=== PATIENT | female | born 1930 | race Caucasian/White ===

== ENCOUNTER 2018-03-23 19:31 | Inpatient (IN) | payer SELFPAY ==
[~2018-03-23] VITALS: Ht 154.9 cm; Wt 35.9 kg
[2018-03-23] MEDS ORDERED: SODIUM CHLORIDE 0.9% 1,000 ML IV ONE (22:30)
[2018-03-23] MEDS ORDERED: ONDANSETRON HCL 4 MG/2 ML VIAL IV ONE (22:30)
[2018-03-23] MEDS ORDERED: MORPHINE SULFATE 10 MG/ML INJ 1ML SDV IV ONE (22:30)
[2018-03-23 23:01] LABS: Basophils # (auto) 0 uL; Basophils % (auto) 0.3 % (0.0-2.0); Eosinophils # (auto) 0 uL; Hematocrit 37.1 % (36.0-46.0); Hemoglobin 12.5 g/dL (12.2-16.2); Lymphocytes # (auto) 0.4 uL; Lymphocytes % (auto) 5.9 % (10.0-50.0); Mean Corpuscular Hgb Conc. 33.7 g/dL (32.0-36.0); Mean Corpuscular Volume 85.9 fL (80.0-100.0); Monocytes # (auto) 0.6 uL; Monocytes % (auto) 7.9 % (0.0-12.0); Neutrophils # (auto) 6.4 uL; Neutrophils % (auto) 85.9 % (37.0-80.0); Platelet Count (auto) 190 10^3/uL (140-450); Red Blood Cells 4.32 10^6/uL (4.0-5.20); Red Cell Distribution Width 14.8 % (11.8-14.3); White Blood Cell 7.5 10^3/uL (4.4-10.8)
[2018-03-23 23:20] LABS: Albumin 3.6 g/dL (3.4-5.0); BUN/Creatinine Ratio 24.1; Calcium 8.5 mg/dL (8.5-10.1)
[2018-03-23 23:22] LABS: INR 0.9 (0.9-1.15); Prothrombin Time 9.7 sec (9.27-12.13)
[2018-03-23 23:23] LABS: Bilirubin, Total 0.7 mg/dL (0.2-1.0); Total Protein 6.6 g/dL (6.4-8.2)
[2018-03-24] VITALS (7 sets, daily range): BP systolic 118–150; BP diastolic 59–74
[2018-03-24] MEDS ORDERED: ACETAMINOPHEN 500 MG TAB PO PRN (01:15)
[2018-03-24] MEDS ORDERED: MORPHINE SULFATE 10 MG/ML INJ 1ML SDV IV PRN (01:15)
[2018-03-24 02:25] LABS: Urine Bacteria FEW /hpf (None Seen); Urine Blood Negative /uL (Negative); Urine Mucus FEW (None Seen); Urine Specific Gravity 1.021 (1.001-1.035); Urine WBC 1 /hpf (0 - 5)
--- NOTE | 2018-03-24 02:40 | NUR ---
MS admit from ER Patient admitted to tele/MS and oriented to primary RN, unit, room, bed, and unit policies regarding patient care and visiting hours. Bed is in lowest position and locked. Call light within reach. Board updated. Bowens hung below bladder and catheter bag attached to non-moveable part of bedframe. Patient weighed by bedscale and encouraged to call if they need something. All questions and concerns addressed.
[2018-03-24] MEDS: ONDANSETRON HCL 4 MG/2 ML VIAL IV PRN ×2 (03:13→16:27)
[2018-03-24] MEDS: MORPHINE SULF INJ 2 MG/ML SYRINGE 1ML IV PRN ×2 (03:14→16:26)
--- NOTE | 2018-03-24 08:00 | NUR ---
RECEIVED PATIENT ALERT AND ORIENTED X2, NOT IN DISTRESS, CLEAR LUNG SOUNDS IN BILATERAL UPPER AND LOWER LUNG LOBES, RR=18 SAT=95% DENIED SOB, HEART UAE=227 DENIED CHEST PAIN, ABDOMEN SOFT WITH ACTIVE BS, KEEP NPO REPORTED, LAST BM=UNKNOWN, MADDOX CATH IN PLACE PATENT AND DRAINING CLEAR YELLOW URIN, C/0 LT. HIP PAIN L=7/10, SKIN INTACT WARM TO TOUCH, RADIAL AND PEDAL PULSES PALPABLE, RESTING ON BED, LAYING ON RT. SIDE, HEAD OF BED ELEVATED, BED ON LOWER POSITION, RAILS UP X2, CALL LIGHT ON REACH, PENDING SURGICAL CONSULT, PENDING SS AND WOUND CONSULT, WILL CONTINUE MONITORING.
[2018-03-24 08:18] LABS: Basophils # (auto) 0 uL; Basophils % (auto) 0.2 % (0.0-2.0); Eosinophils # (auto) 0 uL; Eosinophils % (auto) 0.2 % (0.0-7.0); Hematocrit 36.3 % (36.0-46.0); Hemoglobin 12.5 g/dL (12.2-16.2); Lymphocytes # (auto) 0.7 uL; Lymphocytes % (auto) 9.6 % (10.0-50.0); Mean Corpuscular Hemoglobin 29.5 pg (28.0-32.0); Mean Corpuscular Hgb Conc. 34.4 g/dL (32.0-36.0); Mean Corpuscular Volume 85.7 fL (80.0-100.0); Monocytes # (auto) 0.7 uL; Monocytes % (auto) 10.2 % (0.0-12.0); Neutrophils # (auto) 5.7 uL; Neutrophils % (auto) 79.8 % (37.0-80.0); Nucleated Red Blood Cells % 0.1 %; Platelet Count (auto) 175 10^3/uL (140-450); Red Blood Cells 4.24 10^6/uL (4.0-5.20); Red Cell Distribution Width 15.5 % (11.8-14.3); White Blood Cell 7.1 10^3/uL (4.4-10.8)
[2018-03-24 08:25] LABS: BUN/Creatinine Ratio 14.8; Calcium 8.2 mg/dL (8.5-10.1); Potassium 3.9 mmol/L (3.5-5.1)
[2018-03-24] MEDS: HYDROcodone-ACET 5/325MG TAB PO PRN (10:04)
[2018-03-24] MEDS: SODIUM CHLORIDE 0.9% 1,000 ML IV SCH (15:00)
--- NOTE | 2018-03-24 16:15 | NUR ---
WOUND CARE NOTE: Wound care in to see patient per wound care request regarding low Denilson score of 13 and patient has L femoral fracture , putting patient to high risk for skin breakdown. Patient is 87 years old male with admitting diagnosis of L Femoral fracture. Patient is resting in bed in Rm. 220A. Patient is awake, alert and able to verbalize needs. She needs assistance in turning and repositioning. Patient is in no stated pain at this time but her movement is guarded as she states it hurts to move. Skin assessment done with the assistance of nurse's aid, Laura. No wound noted, no non-blanchable redness over bony prominences noted. Repositioned patient for comfort facing her Rt side, redistributed pressure points with pillows. Patient tolerated well. Bed in lowest position,nurse at bedside. RECOMMENDATION: BID/PRN cleaning and application of barrier cream to sacral and perineum as preventative per MD order, dietary consult for low Denilson score, frequent turning and repositioning schedule as condition permits, redistribute pressure points with pillows,continue monitoring by wound care while patient is hospitalized. Addendum: 03/24/18 at 1820 by Bisi Mcrae RN Amended: Links added.
--- NOTE | 2018-03-24 16:58 | NUR ---
NOT IN DISTRESS, KEEP LT.HIP IMMOBILIZED, INSERTED NEW IV SITE ON LT LOWER ARM DIMAS 20, TOLERATED WELL, RESTING ON AIR MATTRESS BED BED, WOUND CARE NURSE RECOMMENDED REGULAR BED, CARPENTRY TEACHER AND SCHOOL ADMISSIONS REPRESENTATIVE WERE NOTIFIED, ORDER PENDING REPORTED, WILL CONTINUE MONITORING.
--- NOTE | 2018-03-24 19:32 | NUR ---
Opening Shift Note SBAR report received from Padmini BRITT. Assumed care of patient, awake and alert 1-2x, confused. No S/Sx of distress/SOB or pain. s/p FALL WITH LT FEMORAL HIP FX. Instructed on POC, and instructed pt to call for assist PRN, will continue to monitor for changes Q1hr and PRN.
--- NOTE | 2018-03-24 19:43 | NUR ---
CHANGED TO REGULAR BED ORDERED, NOT IN DISTRESS, RESTING ON BED,REPORT WAS GIVEN TO THE AUTOMATIC SERGING MACHINE OPERATOR RN.
--- NOTE | 2018-03-24 21:48 | NUR ---
MD ROTHMAN AT BEDSIDE .NO NEW ORDERS RECEIVED.
--- NOTE | 2018-03-25 02:00 | NUR ---
IV removal by PT IV removed by pt during confusion episode, catheter inspected and fully intact. Pressure dressing applied to site. Pt states no discomfort to site, agrees to new IV placement.
--- NOTE | 2018-03-25 03:00 | NUR ---
IV insertion IV access obtained, via clean sterile technique by inserting gauge catheter at 22.G after 1 attempt. IV secured properly. No trauma to site. Patient tolerated well.
[2018-03-25 06:03] VITALS: BP 146/77
--- NOTE | 2018-03-25 06:46 | NUR ---
Closing Shift Note SBAR report to be received by Padmini BRITT. Patient,sleeping, A&O 1-2x, confused at baseline. No S/Sx of distress/SOB or pain. s/p FALL WITH LT FEMORAL HIP FX. Pt instructed to call for assist PRN, please continue to monitor for changes Q1hr and PRN. MD Nixon was last night at pt room, he stated preliminary date for any procedure for Thursday, no orders received, no acute events overnight.
[2018-03-25] MEDS: SODIUM CHLORIDE 0.9% 1,000 ML IV SCH ×2 (07:40→12:00)
--- NOTE | 2018-03-25 08:00 | NUR ---
RECEIVED PATIENT ALERT AND ORIENTED X2, NOT IN DISTRESS, CLEAR LUNG SOUNDS IN BILATERAL UPPER AND LOWER LUNG LOBES, RR=18 SAT=96% DENIED SOB, HEART RAT=96 DENIED CHEST PAIN, ABDOMEN SOFT WITH ACTIVE BS, TOLERATING DIET TRAY WELL WITH MINIMAL ASSISTANCE, LAST BM=UNKNOWN, MADDOX CATH IN PLACE PATENT AND DRAINING CLEAR YELLOW URIN, C/0 LT. HIP PAIN L=4/10 AT THIS MOMENT, LT. HIP KEEP IMMOBILIZED, SKIN INTACT WARM TO TOUCH, RADIAL AND PEDAL PULSES PALPABLE, RESTING ON BED, LAYING ON RT. SIDE, HEAD OF BED ELEVATED, BED ON LOWER POSITION, RAILS UP X2, CALL LIGHT ON REACH, PENDING ORTHOPEDIC CONSULT, PENDING SS AND WOUND CONSULT, WILL CONTINUE MONITORING.
[2018-03-25 09:00] VITALS: BP 153/78
[2018-03-25] MEDS: FAMOTIDINE 20 MG TAB PO SCH (10:06)
[2018-03-25] MEDS: HYDROcodone-ACET 5/325MG TAB PO PRN (10:07)
--- NOTE | 2018-03-25 11:37 | NUR ---
NUTRITION CONSULT/ASSESSMENT NOTES Please refer to link notes of nutrition screen form filed under the intervention section of the plan of care for further details. Est. Needs: 1350 kcal to 1550 kcal (30-35 kcal/kgBW), 45 gms to 53 gms pro (1.0-1.2 gms/kgBW). Will continue to monitor pertinent labs and reassess nutrient need prn Thank you for this consult. Addendum: 03/25/18 at [address] Amended: Links added.
[2018-03-25 13:00] VITALS: BP 125/66
[2018-03-25 16:28] VITALS: BP 120/58
--- NOTE | 2018-03-25 19:30 | NUR ---
PENDING NPO POST MN ORDERED, PENDING CONSENT FORM DAUGHTER EVANGELISTA WAS NOTIFIED, NOT IN DISTRESS, RESTING ON BED, REPORT WAS GIVEN TO THE CRIMINAL INVESTIGATOR RN.
--- NOTE | 2018-03-25 20:05 | NUR ---
open note assumed care of pt. upon entering room, pt daughter at bedside. pt awake and alert. denied any pain and did not appear in any distress. updated pt and family member on plan of care. encouraged to use call light as needed. will round on pt q1hr along with pressure redistribution q2 and as needed.
[2018-03-25 22:00] VITALS: BP 131/67
[2018-03-25] MEDS: Ensure Enlive Strawberry 8oz Bottle PO SCH (22:00)
--- NOTE | 2018-03-26 03:50 | NUR ---
pt removed IV catheter. upon asking pt, pt confused. alert to self and where she is. unable to verbalize reason for visit or if she had purposely removed IV. in catheter intact. iv site shows no sign of trauma. will attempt IV at later time.
[2018-03-26 05:00] VITALS: BP 143/72
[2018-03-26] MEDS: Ensure Enlive Strawberry 8oz Bottle PO SCH ×2 (06:00→18:36)
--- NOTE | 2018-03-26 07:35 | NUR ---
OPENING SHIFT PATIENT IS AWAKE, ALERT, AND ORIENTED X2. RESPIRATIONS EVEN AND UNLABORED. NO S/S OF DISTRESS, SOB, OR PAIN. DISCUSSED POC WITH PATIENT, PATIENT VERBALIZED UNDERSTANDING. PATIENT IS NPO AWAITING PROCEDURE THIS A.M. WILL CONTINUE TO MONITOR Q1 HOUR AND PRN.
[2018-03-26 09:30] VITALS: BP 122/66
[2018-03-26] MEDS: FAMOTIDINE 20 MG TAB PO SCH (10:00)
--- NOTE | 2018-03-26 10:00 | NUR ---
DR. SHAIKH Burgess AT BEDSIDE. DISCUSSED POC WITH PATIENT. PATIENT VERBALIZED UNDERSTANDING.
[2018-03-26] MEDS: SODIUM CHLORIDE 0.9% 1,000 ML IV SCH (10:04)
--- NOTE | 2018-03-26 10:08 | NUR ---
CONSENTS CONSENTS FOR LEFT HIP NICOLE ARTHROPLASTY SIGNED BY DAUGHTER EVANGELISTA WITH WALE Bolanos CONSENTS MISSING ONE SIGNATURE. PATIENT ALERT AND ORIENTED X3. PATIENT AWARE OF PROCEDURE. PATIENT ABLE TO SIGN FINAL FORM. FINAL FORM SIGNED AND WITNESSED BY THIS RMeeraN. Addendum: 03/26/18 at 1056 by Lisa Tapia RN CONSENT NOT VALID. PATIENT NEEDS TO BE ALERT AND ORIENTED X4. PATIENT DOES NOT KNOW DATE OR TIME. PATIENT IS ONLY ALERT TO SELF, PLACE, AND SITUATION. DAUGHTER CONTACTED. DAUGHTER NOT ABLE TO BE REACHED. LEFT A MESSAGE FOR DAUGHTER TO CALL BACK.
[2018-03-26] MEDS ORDERED: LIDOCAINE 1% INJ PF 5ML AMP ONE (10:18)
[2018-03-26] MEDS ORDERED: ETOMIDATE (2MG/ML) 20ML VIAL IV ONE (10:18)
[2018-03-26] MEDS ORDERED: ROPIVACAINE 0.5% (5MG/ML) 20ML AMPULE IJ ONE (10:29)
[2018-03-26] MEDS ORDERED: LIDOCAINE W/ EPINEPHRINE 2% INJ 20ML VIAL ONE (10:29)
--- NOTE | 2018-03-26 10:58 | NUR ---
PROCEDURE CURRENTLY HELD CONSENT NOT VALID. PATIENT NEEDS TO BE ALERT AND ORIENTED X4. PATIENT DOES NOT KNOW DATE OR TIME. PATIENT IS ONLY ALERT TO SELF, PLACE, AND SITUATION. DAUGHTER CONTACTED. DAUGHTER NOT ABLE TO BE REACHED. LEFT A MESSAGE FOR DAUGHTER TO CALL BACK.
--- NOTE | 2018-03-26 11:30 | NUR ---
DAUGHTER EVANGELISTA CONTACTED DAUGHTER CONTACTED AT [phone] DAUGHTER CONFIRMS AUTHORIZATION FOR SURGERY. INSTRUCTED DAUGHTER THAT A SECOND NURSE WILL BE CONTACTING HER FOR A SECOND WITNESS. DAUGHTER VERBALIZED UNDERSTANDING. PRE OP R.N ALERTED OF CONTACT MADE WITH DAUGHTER.
[2018-03-26] MEDS ORDERED: ceFAZolin 1GM/50ML 50 ML IV ONE (11:37)
[2018-03-26] MEDS ORDERED: ROCURONIUM 10MG/ML 10ML VIAL IV ONE (11:55)
[2018-03-26] MEDS ORDERED: fentaNYL CITRATE 100 MCG/2 ML VL ONE (12:09)
[2018-03-26] MEDS ORDERED: NALOXONE HCL 0.4 MG/ML VIAL IV PRN (12:15)
[2018-03-26] MEDS ORDERED: HYDROmorphone HCL 2 MG/ML VL IV PRN ×2 (12:15→16:45)
[2018-03-26] MEDS ORDERED: ONDANSETRON HCL 4 MG/2 ML VIAL IV ONE (12:15)
[2018-03-26] MEDS ORDERED: ESMOLOL HCL 10 ML IV ONE (12:35)
--- NOTE | 2018-03-26 14:30 | NUR ---
PATIENT BACK FROM PROCEDURE PATIENT HAS A DRESSING TO THE LEFT HIP. DRESSING IS CLEAN, DRY, AND INTACT. PATIENT IS AWAKE, WITH NO S/S OF DISTRESS, SOB, OR PAIN. WILL CONTINUE TO MONITOR Q1 HOUR AND PRN.
--- NOTE | 2018-03-26 15:46 | NUR ---
EDUARDO CLARK M.D. TO ASK TO RESUME PATIENT'S PREVIOUS DIET NOW THAT PATIENT IS BACK FROM PROCEDURE. WILL AWAIT MGustavo'S CALL BACK
[2018-03-26] MEDS ORDERED: HYDROcodone-ACET 5/325MG TAB PO PRN (16:45)
[2018-03-26] MEDS ORDERED: DOCUSATE SOD 100 MG CAP PO PRN (16:45)
[2018-03-26 17:02] VITALS: BP 145/68
--- NOTE | 2018-03-26 17:30 | NUR ---
PATIENT ASLEEP IN BED NO S/S OF DISTRESS, SOB, OR PAIN. RESPIRATIONS ARE EVEN AND UNLABORED. BED IN LOWEST POSITION, SIDE RAILS UP X2, AND CALL LIGHT WITHIN REACH.
[2018-03-26] MEDS: ceFAZolin 1GM/50ML 50 ML IV SCH ×2 (18:35→23:59)
--- NOTE | 2018-03-26 18:45 | NUR ---
DAUGHTER EVANGELISTA CALLED WANTED AN UPDATE ON PATIENT. ADDRESSED ALL QUESTIONS AND CONCERNS. DAUGHTER REQUESTS THAT IF HER MOM WAKES UP AND ASKS FOR HER, TO PLEASE INFORM HER THAT SHE WILL BE HERE TOMORROW MORNING.
--- NOTE | 2018-03-26 18:50 | NUR ---
END OF SHIFT PATIENT ASLEEP IN BED. NO S/S OF DISTRESS, SOB, OR PAIN. RESPIRATIONS EVEN AND UNLABORED. DRESSING TO LEFT HIP IS CLEAN, DRY, AND INTACT. BED IS IN LOWEST POSITION, SIDE RAILS UP X2, AND CALL LIGHT WITHIN REACH. FALL PRECAUTIONS IN PLACE. WILL ENDORSE CARE TO SUPERVISOR TANK HOUSE R.N.
--- NOTE | 2018-03-26 20:00 | NUR ---
open note assumed care of pt. upon entering room, pt eyes are closed, breathing is even an unlabored. no s/s distress noted. bed locked, in low position with x2 rails up. call light in reach. will continue to monitor and provide pressure redistribution q1hr.
[2018-03-26 22:00] VITALS: BP 123/72
--- NOTE | 2018-03-26 22:15 | NUR ---
cooling measures initiated. Addendum: 03/27/18 at 0235 by TULIO SAHU RN RN excess blankets removed. temperature of room decreased. pt mentation remains at baseline, alert to self and to her location. not combative. pt not diaphoretic. will continue to monitor.
--- NOTE | 2018-03-27 02:08 | NUR ---
pt self removed IV line despite stockinette and mitten on opposite hand. no trauma to site visualized. coagulation within expected time frame. pt unaware as to her discontinuing IV and denied any discomfort. will attempt IV insertion at later time.
--- NOTE | 2018-03-27 04:53 | NUR ---
pt found to have removed mittens and lifted corner of dressing on left hip. no trauma to site visualized. gwen intact. dressing change performed. pt tolerated well. mittens replaced. IV insertion IV access obtained, via clean sterile technique by inserting 20 gauge catheter at [facility] after 2 attempt(s). IV secured properly. No trauma to site. Patient tolerated well.
[2018-03-27 05:00] VITALS: BP 122/62
[2018-03-27] MEDS: ceFAZolin 1GM/50ML 50 ML IV SCH ×3 (05:34→17:50)
[2018-03-27] MEDS: SODIUM CHLORIDE 0.9% 1,000 ML IV SCH (05:34)
[2018-03-27 06:34] LABS: Basophils # (auto) 0 uL; Basophils % (auto) 0.2 % (0.0-2.0); Eosinophils # (auto) 0 uL; Eosinophils % (auto) 0.1 % (0.0-7.0); Hematocrit 34.7 % (36.0-46.0); Hemoglobin 12.1 g/dL (12.2-16.2); Lymphocytes # (auto) 0.5 uL; Lymphocytes % (auto) 4.4 % (10.0-50.0); Mean Corpuscular Volume 85.8 fL (80.0-100.0); Monocytes # (auto) 1.4 uL; Monocytes % (auto) 13.6 % (0.0-12.0); Neutrophils # (auto) 8.6 uL; Neutrophils % (auto) 81.7 % (37.0-80.0); Nucleated Red Blood Cells % 0.1 %; Platelet Count (auto) 203 10^3/uL (140-450); Red Blood Cells 4.04 10^6/uL (4.0-5.20); Red Cell Distribution Width 15.1 % (11.8-14.3); White Blood Cell 10.5 10^3/uL (4.4-10.8)
[2018-03-27 06:56] LABS: BUN/Creatinine Ratio 21.5; Potassium 3.8 mmol/L (3.5-5.1)
--- NOTE | 2018-03-27 07:26 | NUR ---
OPENING SHIFT PATIENT IS ASLEEP IN BED. PATIENT IS WEARING HAND MITTENS BILATERALLY TO PREVENT INJURY TO HERSELF. RESPIRATIONS EVEN AND UNLABORED. NO S/S OF DISTRESS, SOB, OR PAIN. FALL PRECAUTIONS IN PLACE. WILL CONTINUE TO MONITOR Q1 HOUR AND PRN.
[2018-03-27 08:44] VITALS: BP 113/52
--- NOTE | 2018-03-27 10:20 | NUR ---
DARK BOWEL MOVEMENT PATIENT HAD A BOWEL MOVEMENT THAT WAS VERY DARK IN COLOR WITH FOUL ODOR. PAGED DR. LANGLEY COLLECTED SPECIMEN AND SENT TO LAB FOR STOOL OCCULT TEST STAT CBC ORDERED STAT WELL WILL AWAIT RESULTS AND UPDATE MYariel
[2018-03-27] MEDS: Ensure Enlive Strawberry 8oz Bottle PO SCH ×3 (12:05→17:51)
[2018-03-27] MEDS: FAMOTIDINE 20 MG TAB PO SCH (12:05)
[2018-03-27] MEDS: ENOXAPARIN SOD 30 MG/0.3 ML SYRINGE SC SCH (12:06)
[2018-03-27 12:17] LABS: Basophils # (auto) 0 uL; Basophils % (auto) 0.1 % (0.0-2.0); Eosinophils # (auto) 0 uL; Hemoglobin 11.3 g/dL (12.2-16.2); Lymphocytes # (auto) 0.3 uL; Lymphocytes % (auto) 3.9 % (10.0-50.0); Mean Corpuscular Hemoglobin 29.5 pg (28.0-32.0); Mean Corpuscular Hgb Conc. 34.3 g/dL (32.0-36.0); Mean Corpuscular Volume 85.9 fL (80.0-100.0); Monocytes # (auto) 0.9 uL; Monocytes % (auto) 10.9 % (0.0-12.0); Neutrophils % (auto) 85.1 % (37.0-80.0); Platelet Count (auto) 176 10^3/uL (140-450); Red Blood Cells 3.85 10^6/uL (4.0-5.20); White Blood Cell 8.2 10^3/uL (4.4-10.8)
[2018-03-27 13:22] VITALS: BP 141/57
[2018-03-27 17:10] VITALS: BP 119/56
--- NOTE | 2018-03-27 18:47 | NUR ---
END OF SHIFT PATIENT ASLEEP IN BED. NO S/S OF DISTRESS, SOB, OR PAIN. RESPIRATIONS EVEN AND UNLABORED. DRESSING TO LEFT HIP IS CLEAN, DRY, AND INTACT. BED IS IN LOWEST POSITION, SIDE RAILS UP X2, AND CALL LIGHT WITHIN REACH. FALL PRECAUTIONS IN PLACE. WILL ENDORSE CARE TO EMPLOYMENT EDUCATIONAL COORD R.N.
[2018-03-27 22:00] VITALS: BP 127/62
--- NOTE | 2018-03-28 03:37 | NUR ---
Assumed care of patient from BALWINDER Monterroso. Patient alert and oriented x 2. Patient reports no pain and is not exhibiting any non-verbal pain signals. NS infusing at 50 ml/hr. Bed is in lowest position and locked. Call light within reach. Bed alarm on.
[2018-03-28 04:34] VITALS: BP 125/57
[2018-03-28] MEDS: ceFAZolin 1GM/50ML 50 ML IV SCH ×3 (05:16→13:00)
[2018-03-28 06:45] LABS: Hematocrit 28.6 % (36.0-46.0)
--- NOTE | 2018-03-28 07:20 | NUR ---
OPENING SHIFT PATIENT IS ASLEEP IN BED. RESPIRATIONS EVEN AND UNLABORED. NO S/S OF DISTRESS, SOB, OR PAIN. FALL PRECAUTIONS IN PLACE. WILL CONTINUE TO MONITOR Q1 HOUR AND PRN.
[2018-03-28 09:00] VITALS: BP 113/54
[2018-03-28] MEDS: Ensure Enlive Strawberry 8oz Bottle PO SCH ×3 (11:26→19:00)
[2018-03-28] MEDS: FAMOTIDINE 20 MG TAB PO SCH (11:26)
[2018-03-28] MEDS: ENOXAPARIN SOD 30 MG/0.3 ML SYRINGE SC SCH (11:27)
--- NOTE | 2018-03-28 11:30 | NUR ---
PATIENT C/O OF PAIN PATIENT SITTING UP IN CHAIR. PATIENT STATE'S "I AM HAVING LOTS OF ACHES AND PAINS TODAY. MY LEGS REALLY HURT." PATIENT GUARDING LEFT HIP. VISUALIZED LEFT HIP. SKIN IS BASELINE COLOR. DRESSING IS CLEAN, DRY, AND INTACT. WILL MEDICATE FOR PAIN VIA EMAR/ M.D. ORDERS
[2018-03-28] MEDS: HYDROcodone-ACET 5/325MG TAB PO PRN ×2 (11:33→17:24)
[2018-03-28 13:00] VITALS: BP 126/72
--- NOTE | 2018-03-28 15:00 | NUR ---
PATIENT SITTING UP IN CHAIR PATIENT UP IN CHAIR WATCHING T.V. PATIENT SHOWS NO S/S OF DISTRESS OR SOB. PATIENT DENIES PAIN. RESPIRATIONS EVEN AND UNLABORED. WILL CONTINUE TO MONITOR Q1 HOUR AND PRN.
[2018-03-28 17:00] VITALS: BP 112/65
--- NOTE | 2018-03-28 17:25 | NUR ---
PATIENT BACK IN BED PT HELPED PLACE PATIENT BACK IN BED. THE TRANSFER CAUSED PATIENT TO C/O OF PAIN. ADJUSTED PATIENT FROM COMFORT. NO S/S OF DISTRESS OR SOB. WILL MEDICATE PER EMAR/ M.D. ORDERS
--- NOTE | 2018-03-28 19:03 | NUR ---
END OF SHIFT PATIENT ASLEEP IN BED. NO S/S OF DISTRESS, SOB, OR PAIN. RESPIRATIONS EVEN AND UNLABORED. DRESSING TO LEFT HIP IS CLEAN, DRY, AND INTACT. BED IS IN LOWEST POSITION, SIDE RAILS UP X2, AND CALL LIGHT WITHIN REACH. FALL PRECAUTIONS IN PLACE. WILL ENDORSE CARE TO WAITSTAFF R.N.
--- NOTE | 2018-03-28 19:12 | NUR ---
Opening Shift Note Assumed care of patient, awake and alert x 1-2. No S/S of distress/SOB or pain. Bed is in lowest position and locked. Call light within reach. Board updated. Instructed on POC and to call for assist PRN, will continue to monitor for changes Q1hr and PRN.
[2018-03-28] MEDS: SODIUM CHLORIDE 0.9% 1,000 ML IV SCH ×2 (21:04)
[2018-03-28 22:00] VITALS: BP 102/58
--- NOTE | 2018-03-28 22:45 | NUR ---
20 gauge IV to left upper arm removed by patient. IV catheter intact. Site covered with sterile gauze and wrapped in Coban. IV inserted into right forearm, 20 gauge, by BALWINDER Couch using clean technique. Patient tolerated well.
--- NOTE | 2018-03-29 00:27 | NUR ---
Patient has pulled out her IV again. 20 gauge to right forearm removed by patient. Catheter intact. Site covered with sterile gauze and covered with coban.
[2018-03-29] MEDS: HYDROcodone-ACET 5/325MG TAB PO PRN (02:08)
[2018-03-29 05:52] VITALS: BP 112/51
--- NOTE | 2018-03-29 06:55 | NUR ---
IV insertion IV access obtained, via clean technique by inserting a 22 gauge catheter into the right AC after 1 attempt. IV secured properly. No trauma to site. Patient tolerated well.
--- NOTE | 2018-03-29 07:30 | NUR ---
Morning note patient resting in bed with even and unlabored respirations on RA. Patient is A&O to self (name/). Instructed patient on POC, fall precautions and to call for assistance. Patient verbalized understanding although frequent reorientation is needed. Call light within reach. Bed alarm on for safety. Dressing to the left hip is clean, dry and intact. Patient is able to turn self. Will continue to monitor q1hr & PRN.
[2018-03-29 08:53] VITALS: BP 145/62
[2018-03-29] MEDS: FAMOTIDINE 20 MG TAB PO SCH (09:00)
[2018-03-29] MEDS: ENOXAPARIN SOD 30 MG/0.3 ML SYRINGE SC SCH (09:00)
[2018-03-29] MEDS: Ensure Enlive Strawberry 8oz Bottle PO SCH ×3 (09:01→18:30)
[2018-03-29 09:43] LABS: Basophils # (auto) 0 uL; Basophils % (auto) 0.4 % (0.0-2.0); Eosinophils # (auto) 0 uL; Eosinophils % (auto) 0.4 % (0.0-7.0); Hematocrit 28.6 % (36.0-46.0); Hemoglobin 9.9 g/dL (12.2-16.2); Lymphocytes # (auto) 0.4 uL; Lymphocytes % (auto) 6.7 % (10.0-50.0); Mean Corpuscular Hemoglobin 29.3 pg (28.0-32.0); Mean Corpuscular Hgb Conc. 34.6 g/dL (32.0-36.0); Mean Corpuscular Volume 84.9 fL (80.0-100.0); Monocytes # (auto) 0.6 uL; Neutrophils # (auto) 5.6 uL; Neutrophils % (auto) 83.5 % (37.0-80.0); Platelet Count (auto) 226 10^3/uL (140-450); Red Blood Cells 3.37 10^6/uL (4.0-5.20); Red Cell Distribution Width 14.8 % (11.8-14.3); White Blood Cell 6.7 10^3/uL (4.4-10.8)
--- NOTE | 2018-03-29 11:44 | NUR ---
assessment Patient is a 87 year old female who is confused. Patient admitted for left hip fracture. No family at bedside. I have left a message for patients daughter Madiha to return my call. Waiting chimney construction supervisor back now. Addendum: 03/31/18 at 0848 by Lisbet ESCOTO Amended: Links added.
--- NOTE | 2018-03-29 11:56 | NUR ---
was at bedside Dr. Zambrano was at bedside with this RN discussing POC with the patient. This RN instructed to speak with patient's daughter to determine living situation.
[2018-03-29] MEDS ORDERED: MORPHINE SULF INJ 2 MG/ML SYRINGE 1ML IV PRN (12:00)
--- NOTE | 2018-03-29 12:01 | NUR ---
Called patient's daughter Called the patient's daughter, Madiha, per Dr. Zambrano's request. No answer. Voicemail left.
--- NOTE | 2018-03-29 12:26 | NUR ---
Nutrition Follow-up Notes Wt: 39.7 kg Pt was awake seemed to be oriented with no family by beside. per pt she does not knw her wt. per pt has no N/V. per pt has fair appetite and did eat her breakfast today. per pt no hx of any co morbid condition that she remember of. pt is currently on 2 gm na diet with ensure Enlive 1 carton TID with inadequate PO of 50% x 6 per RN doc. per records pt s/p hemiarthroplasty Est. Needs: 1350 kcal to 1550 kcal (30-35 kcal/kgBW), 45 gms to 53 gms pro (1.0-1.2 gms/kgBW). Will continue to monitor pertinent labs and reassess nutrient need prn Labs: GLU 125 H, CA 8.0 L. Skin: Denilson scale 15, mod risk, incision at site of sx per RN doc GI: Pt had 1 BM today per manager wholesale. PES: Altered nutrition related lab values r/t acute/chronic medical condition aeb hyperglycemia and hypocalcemia Increased nutrient needs r/t current chronic medical condition aeb 93% IBW, BMI 18.5 kg/m2, decreased muscle mass, <75% consumed Will continue to monitor PO intake, skin status, pertinent labs and weight trend. F/u in 3-5 days. Rec.: 1.) Continue close supervision and feeding assistance prn during meals 3.) Refer to RD for further nutrition educ. and weight monitoring upon discharge. 4.) Continue current plan of care.
[2018-03-29 13:05] VITALS: BP 120/49
--- NOTE | 2018-03-29 13:53 | NUR ---
Patient found on floor This RN returned from lunch and was noted by housekeeping that patient was on the floor. Patient seen in a sitting position on the floor. A formed brown bowel movement noted on the floor in the front of the patient. Patient's gaona catheter noted to be out of the patient with the catheter balloon inflated. No bleeding noted at this time. Patient stated "I was going to the bathroom." The side the patient exited the bed had 2 side rails up (top and bottom rail). Patient is A&Ox1. Bed alarm was on prior to this RN taking a lunch break. Fall precaution socks in place. x3 side rails up. Bed alarm to be on notification written on patient's write board by this RN. Dressing to the left hip is clean, dry and intact with no bleeding noted. Pedal pulse assessed with no deficit noted. Patient denies pain at this time. Nhung, RN, and WALE Oliiver, at bedside to assist this RN. Emery Hodges RN, notified. Dr. Zambrano verbally notified. Orders received.
--- NOTE | 2018-03-29 16:11 | NUR ---
Paged Dr. Garcia to notify of hip x-ray results.
--- NOTE | 2018-03-29 16:16 | NUR ---
Updated Dr. Zambrano of Left hip x-ray MD verbalized understanding. Notifying Dr. Nixon is not needed at this time per Dr. Zambrano.
[2018-03-29 17:12] VITALS: BP 128/52
--- NOTE | 2018-03-29 17:35 | NUR ---
RE: elevated temperature Notified Calixto Chow.Nessa., regarding patient's elevated temperature. Verbal order received and read back. RN to place order per N.P.'s request.
[2018-03-29] MEDS ORDERED: ACETAMINOPHEN 500 MG TAB PO PRN (17:45)
--- NOTE | 2018-03-29 18:58 | NUR ---
End of shift patient resting in bed with even and unlabored respirations on RA. Dressing to the left hip is clean, dry and intact with no ecchymosis noted. Fall precautions in place with bed in low locked position, x3 side rails up, bed alarm on for safety and call light within reach. Patient has red fall precaution socks in place. Will endorse care to BALWINDER Roberto.
--- NOTE | 2018-03-29 19:17 | NUR ---
Paged on-call hospitalist Jourdan Banuelos N.P., paged regarding elevated temperature and results of bladder scanner.
--- NOTE | 2018-03-29 19:20 | NUR ---
Updated Calixto Soliman.Nessa., regarding patient's status. Jourdan to review patient's chart and come to bedside.
--- NOTE | 2018-03-29 19:40 | NUR ---
OPENING SHIFT NOTE ASSUMED CARE, A/0 X 1 WITH NO SIGNS OF DISTRESS, NO IV ACCESS AT THIS TIME. RESPIRATIONS EVEN AND UNLABORED ON ROOM AIR, LEFT HIP DRESSING IS CLEAN, DRY AND INTACT. BED IN LOWEST POSITION WITH SIDE RAILS UP, BED ALARM ON. WILL RE-ORIENT AND CONTINUE TO MONITOR.
--- NOTE | 2018-03-29 19:55 | NUR ---
Spencer Soliman, was at patient's bedside
[2018-03-29 21:06] LABS: Basophils # (auto) 0 uL; Basophils % (auto) 0.4 % (0.0-2.0); Eosinophils # (auto) 0 uL; Eosinophils % (auto) 0.4 % (0.0-7.0); Hematocrit 28.7 % (36.0-46.0); Hemoglobin 9.7 g/dL (12.2-16.2); Lymphocytes # (auto) 0.8 uL; Lymphocytes % (auto) 9.8 % (10.0-50.0); Mean Corpuscular Volume 85.4 fL (80.0-100.0); Monocytes # (auto) 0.9 uL; Monocytes % (auto) 11.9 % (0.0-12.0); Neutrophils % (auto) 77.5 % (37.0-80.0); Platelet Count (auto) 270 10^3/uL (140-450); Red Blood Cells 3.36 10^6/uL (4.0-5.20); White Blood Cell 7.8 10^3/uL (4.4-10.8)
[2018-03-29 21:51] VITALS: BP 114/51
--- NOTE | 2018-03-29 22:30 | NUR ---
IV insertion IV access obtained, via clean sterile technique by inserting 20 gauge catheter at right wrist 20g after 1st attempt. IV secured properly. No trauma to site. Patient tolerated well. NOTE: IV was out of vein during rounds
--- NOTE | 2018-03-29 22:45 | NUR ---
Gaona catheter insertion Patient assessed and determined to be in need of gaona catheter. Order obtained from MD. Patient educated on catheter and reason for insertion. All questions answered. Gaona catheter 16 [place] inserted with clean sterile technique. Patient tolerated well. Obtained a clear yellow urine, about 400ml initially. Will continue to monitor I & O.
--- NOTE | 2018-03-30 05:00 | NUR ---
Patient bathe/linen change Patient given partial bed bath, sacral optifoam applied for prevention of skin breakdown. Skin integrity assessed for any changes. Linens and gown changed. Patient repositioned for comfort.
--- NOTE | 2018-03-30 05:30 | NUR ---
Dressing in the left hip changed.
[2018-03-30 05:38] VITALS: BP 131/55
--- NOTE | 2018-03-30 05:45 | NUR ---
ELIMINATION HAD 3X EPISODES OF LOOSE STOOLS, CLEANSED AND KEPT DRY.
--- NOTE | 2018-03-30 07:00 | NUR ---
CLOSING SHIFT NOTE RESTING ON BED WITH NO SIGNS OF DISTRESS. REPORT GIVEN TO YAKOV BRITT.
[2018-03-30] MEDS: Ensure Enlive Strawberry 8oz Bottle PO SCH ×3 (08:00→18:00)
[2018-03-30 08:08] LABS: Hematocrit 26.5 % (36.0-46.0); Hemoglobin 9.2 g/dL (12.2-16.2)
--- NOTE | 2018-03-30 08:41 | NUR ---
RECEIVED REPORT AND ASSUME CARE OF PT . PT RESTING IN BED. BED AT LOWEST POSITION. CALL LIGHT AND BELONGINGS WITHIN REACH. WILL CONT TO MONITOR.
[2018-03-30 09:07] VITALS: BP 100/42
--- NOTE | 2018-03-30 10:00 | NUR ---
re-assessment I have left another message for patients germaine Dan Still waiting monotype operator back. Addendum: 03/31/18 at 0848 by Lisbet ESCOTO Amended: Links added.
[2018-03-30] MEDS: FAMOTIDINE 20 MG TAB PO SCH (10:23)
[2018-03-30] MEDS: ENOXAPARIN SOD 30 MG/0.3 ML SYRINGE SC SCH (10:24)
[2018-03-30 12:29] LABS: Urine Bacteria NONE SEEN /hpf (None Seen); Urine Blood Negative /uL (Negative); Urine Mucus FEW (None Seen); Urine Specific Gravity 1.018 (1.001-1.035); Urine WBC 4 /hpf (0 - 5)
[2018-03-30 13:00] VITALS: BP 112/52
[2018-03-30 16:31] VITALS: BP 105/40
--- NOTE | 2018-03-30 19:18 | NUR ---
PT RESTING IN BED. NO S/S ACUTE DISTRESS NOTED. ENDORSED CARE TO NIGHT NURSE.
[2018-03-30] MEDS: HYDROcodone-ACET 5/325MG TAB PO PRN (21:38)
[2018-03-30 22:00] VITALS: BP 114/57
[2018-03-31 05:00] VITALS: BP 109/59
[2018-03-31 06:20] LABS: Basophils # (auto) 0 uL; Basophils % (auto) 0.6 % (0.0-2.0); Eosinophils # (auto) 0.1 uL; Eosinophils % (auto) 1.3 % (0.0-7.0); Hematocrit 27.5 % (36.0-46.0); Hemoglobin 9.4 g/dL (12.2-16.2); Lymphocytes # (auto) 1.1 uL; Lymphocytes % (auto) 21.2 % (10.0-50.0); Mean Corpuscular Hemoglobin 29.1 pg (28.0-32.0); Mean Corpuscular Hgb Conc. 34.1 g/dL (32.0-36.0); Mean Corpuscular Volume 85.5 fL (80.0-100.0); Monocytes # (auto) 0.7 uL; Monocytes % (auto) 13.8 % (0.0-12.0); Neutrophils # (auto) 3.1 uL; Neutrophils % (auto) 63.1 % (37.0-80.0); Nucleated Red Blood Cells % 0.2 %; Platelet Count (auto) 297 10^3/uL (140-450); Red Blood Cells 3.22 10^6/uL (4.0-5.20); Red Cell Distribution Width 14.8 % (11.8-14.3)
[2018-03-31 06:58] LABS: Chloride 101 mmol/L (98-107); Potassium 3.8 mmol/L (3.5-5.1); Sodium 135 mmol/L (136-145)
[2018-03-31 07:02] LABS: Anion Gap 4 (5-15); BUN/Creatinine Ratio 46.3; Blood Urea Nitrogen 19 mg/dL (7-18); Calcium 7.9 mg/dL (8.5-10.1); Carbon Dioxide 30 mmol/L (21-32); Glucose 93 mg/dL (74-106)
[2018-03-31 07:10] LABS: GFR African American > 60 mL/min; GFR Non-African American > 60 mL/min
--- NOTE | 2018-03-31 07:22 | NUR ---
RECEIVED REPORT AND ASSUME CARE OF PT. PT RESTING IN BED. NO S/S ACUTE DISTRESS NOTED. BED AT LOWEST POSITION. CALL LIGHT AND BELONGINGS WITHIN REACH. WILL CONT TO MONITOR.
[2018-03-31] MEDS: Ensure Enlive Strawberry 8oz Bottle PO SCH ×3 (08:00→18:34)
--- NOTE | 2018-03-31 08:47 | NUR ---
re-assessment I have called patients daughter Madiha and left 3rd message for her to return my call. I also informed her to have me paged if not at my desk. Waiting for return call now. Addendum: 03/31/18 at 0848 by Lisbet ESCOTO Amended: Links added.
[2018-03-31 08:53] VITALS: BP 107/50
[2018-03-31] MEDS: FAMOTIDINE 20 MG TAB PO SCH (09:57)
[2018-03-31] MEDS: ENOXAPARIN SOD 30 MG/0.3 ML SYRINGE SC SCH (09:58)
[2018-03-31 13:00] VITALS: BP 105/61
[2018-03-31 17:00] VITALS: BP 116/56
--- NOTE | 2018-03-31 19:25 | NUR ---
PT RESTING IN BED. NO S/S ACUTE DISTRESS NOTED. ENDORSED CARE TO NIGHT NURSE.
--- NOTE | 2018-03-31 19:30 | NUR ---
Opening shift note Patient in bed alert and oriented x 3 with periods of forgetfulness, verbally coherent, able to make needs known. Patient's respiration even and unlabored, complained of minimal pain to lower back, however, able to tolerate at this time. Plan of care discussed, patient verbalized understanding. Patient given fat free milk as requested. All needs attended, will continue to monitor.
[2018-03-31 21:32] VITALS: BP 134/61
[2018-04-01 05:11] VITALS: BP 135/63
[2018-04-01 05:23] LABS: Hematocrit 27.7 % (36.0-46.0); Hemoglobin 9.3 g/dL (12.2-16.2)
[2018-04-01 08:00] VITALS: BP 118/55
--- NOTE | 2018-04-01 09:00 | NUR ---
PT WALKS WITH PT. NO S/S OF ACUTE DISTRESS NOTED.
--- NOTE | 2018-04-01 09:45 | NUR ---
DR. RASHID AT BEDSIDE.
[2018-04-01] MEDS: HYDROcodone-ACET 5/325MG TAB PO PRN (10:08)
[2018-04-01] MEDS: Ensure Enlive Strawberry 8oz Bottle PO SCH ×3 (10:08→18:11)
[2018-04-01] MEDS: FAMOTIDINE 20 MG TAB PO SCH (10:08)
[2018-04-01] MEDS: ENOXAPARIN SOD 30 MG/0.3 ML SYRINGE SC SCH (10:08)
[2018-04-01 12:00] VITALS: BP 117/57
[2018-04-01] MEDS ORDERED: HYDROcodone-ACET 5/325MG TAB PO PRN (13:45)
[2018-04-01 16:00] VITALS: BP 103/47
--- NOTE | 2018-04-01 19:01 | NUR ---
CARE ENDORSED TO TOÑA BRITT.
--- NOTE | 2018-04-01 19:30 | NUR ---
OPENING SHIFT NOTE PATIENT IN BED ON HIGH FOWLERS POSITION EATING DINNER. PATIENT'S RESPIRATION EVEN AND UNLABORED, DENIES PAIN OR ANY DISCOMFORT AT THIS TIME. PLAN OF CARE DISCUSSED, PATIENT REQUIRES REINFORCEMENT. PATIENT CONSUMED 75% OF DINNER TRAY. DRESSING TO LEFT HIP INTACT, CLEAN AND DRY. ALL NEEDS ATTENDED, WILL CONTINUE TO MONITOR.
--- NOTE | 2018-04-01 20:00 | NUR ---
PATIENT ASSISTED FROM BED TO BATHROOM AND BACK TO BED USING WALKER. PATIENT WITH MODERATE AMOUNT OF FORMED SOFT BROWN STOOL. WILL CONTINUE TO MONITOR.
[2018-04-01 22:00] VITALS: BP 114/62
[2018-04-02 05:00] VITALS: BP 138/68
[2018-04-02 06:14] LABS: Anion Gap 7 (5-15); Blood Urea Nitrogen 17 mg/dL (7-18); Calcium 8.4 mg/dL (8.5-10.1); Carbon Dioxide 27 mmol/L (21-32); Chloride 103 mmol/L (98-107); Glucose 91 mg/dL (74-106); Potassium 4.1 mmol/L (3.5-5.1); Sodium 137 mmol/L (136-145)
[2018-04-02 06:16] LABS: GFR African American > 60 mL/min; GFR Non-African American > 60 mL/min
[2018-04-02 06:30] LABS: Basophils # (auto) 0.2 uL; Eosinophils # (auto) 0.1 uL; Eosinophils % (auto) 1.2 % (0.0-7.0); Hematocrit 30.9 % (36.0-46.0); Hemoglobin 10.3 g/dL (12.2-16.2); Lymphocytes # (auto) 0.9 uL; Lymphocytes % (auto) 12.9 % (10.0-50.0); Mean Corpuscular Hemoglobin 28.5 pg (28.0-32.0); Mean Corpuscular Hgb Conc. 33.3 g/dL (32.0-36.0); Mean Corpuscular Volume 85.7 fL (80.0-100.0); Monocytes # (auto) 0.6 uL; Monocytes % (auto) 9.1 % (0.0-12.0); Neutrophils # (auto) 5.2 uL; Neutrophils % (auto) 73.8 % (37.0-80.0); Platelet Count (auto) 433 10^3/uL (140-450); Red Cell Distribution Width 15.5 % (11.8-14.3)
--- NOTE | 2018-04-02 07:50 | NUR ---
Opening Shift Note Assumed care of patient, awake and alert. No S/S of distress/SOB or pain. Instructed on POC and to call for assist PRN, bed locked in the lowest position, call light within easy reach, will continue to monitor for changes Q1hr and PRN.
[2018-04-02] MEDS: Ensure Enlive Strawberry 8oz Bottle PO SCH ×3 (07:57→18:14)
[2018-04-02 08:00] VITALS: BP 123/62
[2018-04-02 08:56] VITALS: BP 123/62
[2018-04-02 09:00] VITALS: BP 105/49
[2018-04-02] MEDS: FAMOTIDINE 20 MG TAB PO SCH (09:49)
[2018-04-02] MEDS: ENOXAPARIN SOD 30 MG/0.3 ML SYRINGE SC SCH (09:49)
[2018-04-02] MEDS ORDERED: DOCU100C8 PO (10:20)
[2018-04-02] MEDS ORDERED: FAM20T PO (10:20)
[2018-04-02] MEDS ORDERED: APIX2.5T PO (10:20)
--- NOTE | 2018-04-02 10:30 | NUR ---
DR. RASHID AT BEDSIDE.
[2018-04-02] MEDS ORDERED: RIV15T PO (13:13)
--- NOTE | 2018-04-02 15:01 | NUR ---
Nutrition Follow-up Notes Wt: 35.7 kg Pt was sleeping with no family by beside. pt with no distress noted per nursing. pt is currently on 2 gm na diet with ensure Enlive 1 carton TID with adequate PO of 75% x 5 per RN doc. Est. Needs: 1350 kcal to 1550 kcal (30-35 kcal/kgBW), 45 gms to 53 gms pro (1.0-1.2 gms/kgBW). Will continue to monitor pertinent labs and reassess nutrient need prn Labs: CA 8.4 L. 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 PES: Altered nutrition related lab values r/t acute/chronic medical condition aeb hyperglycemia and hypocalcemia Increased nutrient needs r/t current chronic medical condition aeb 93% IBW, BMI 18.5 kg/m2, decreased muscle mass, <75% consumed Will continue to monitor PO intake, skin status, pertinent labs and weight trend. F/u in 3-5 days. Rec.: 1.) Continue close supervision and feeding assistance prn during meals 3.) Refer to RD for further nutrition educ. and weight monitoring upon discharge. 4.) Continue current plan of care.
[2018-04-02 17:34] VITALS: BP 123/69
--- NOTE | 2018-04-02 18:28 | NUR ---
DAUGHTER JER AT THE BEDSIDE REFUSED TO TAKE HER MOM HOME TONIGHT DUE TO HER HOUSE IS NOT READY. JER STATED WILL COME BACK TOMORROW MORNING TO PICK HER MOM UP. AMOL DENNIS NOTIFIED.
--- NOTE | 2018-04-02 19:30 | NUR ---
RECEIVED PATIENT LYING IN BED, AWAKE, ALERT, ORIENTED X2. NO S/S OF RESPIRATORY DISTRESS. ORIENTED ON PLAN. BED IS LOCKED AND IN LOWEST LEVEL, SIDE RAILS UP X2, BED ALARM ON. CALL LIGHT WITHIN REACH. WILL CONTINUE TO MONITOR.
[2018-04-02 22:00] VITALS: BP 114/58
[2018-04-03 04:39] VITALS: BP 116/58
--- NOTE | 2018-04-03 07:25 | NUR ---
CARE ENDORSED TO AM SHIFT RN
--- NOTE | 2018-04-03 07:40 | NUR ---
Opening Shift Note Assumed care of patient, AAOX2, breathing even, unlabored, S1, S2, Abd soft nontender. No S/S of distress/SOB or pain. Instructed on POC and to call for assist PRN, bed locked in the lowest position, call light within easy reach, will continue to monitor for changes Q1hr and PRN.
[2018-04-03 08:00] VITALS: BP 112/60
--- NOTE | 2018-04-03 10:10 | NUR ---
CALLED DAUGHTER EVANGELISTA @ [phone] REGARDING PT HAD D/C ORDER SINCE YESTERDAY 04/02/18. NO ONE ANSWER, ONE MESSAGE WAS LEFT. WILL TRY AGAIN.
[2018-04-03] MEDS: FAMOTIDINE 20 MG TAB PO SCH (10:30)
[2018-04-03] MEDS: Ensure Enlive Strawberry 8oz Bottle PO SCH ×2 (10:30→12:17)
[2018-04-03] MEDS: ENOXAPARIN SOD 30 MG/0.3 ML SYRINGE SC SCH (10:30)
--- NOTE | 2018-04-03 12:22 | NUR ---
Discharge instructions given as ordered. Pt doesn't have insurance, Urgent care voucher given . All questions and concerns addressed. Patient's daughter verbalized understanding. Medication reconciliation form completed and copy given to patient. Home medications held in Pharmacy returned to patient, and needed vaccines given. IV removed with catheter intact, pressure dressing applied. Patient taken to vehicle via wheelchair with all personal belongings, accompanied by staff and family member. No distress noted at time of departure.
[2018-04-03 13:00] VITALS: BP 119/63
== END 2018-04-03 12:30 | disposition home or self-care (01) | DRG 470 ==
LOC: ER 19:31 → OVERFLOW 03-24 01:58 → CENTRAL 03-24 02:37
PROVIDERS: ADMIT Nurse Practitioner Family; ATTEND Internal Medicine
PROC: 0SRS0JZ Replacement of Left Hip Joint, Femoral Surface with Synthetic Substitute, Open Approach (ICD-10-PCS; principal; 2018-03-28)
DX: S72.002A Fracture of unspecified part of neck of left femur, initial encounter for closed fracture (principal); D64.9 Anemia, unspecified; F03.90 Unspecified dementia, unspecified severity, without behavioral disturbance, psychotic disturbance, mood disturbance, and anxiety; I10 Essential (primary) hypertension; I25.10 Atherosclerotic heart disease of native coronary artery without angina pectoris; M16.12 Unilateral primary osteoarthritis, left hip; M70.60 Trochanteric bursitis, unspecified hip; W18.39XA Other fall on same level, initial encounter; Y93.89 Activity, other specified; Y92.89 Other specified places as the place of occurrence of the external cause; Z86.73 Personal history of transient ischemic attack (TIA), and cerebral infarction without residual deficits
CPT/HCPCS: 36415; 70450; 71045; 73501; 80048; 80053; 81001; 82270; 83735; 84132; 85014; 85018; 85025; 85610; 86850; 86900; 86901; 87040; 87081; 87086; 87804; 93005; 97116; 97163; 97530; A6257; G0378; J0690; J2405

== ENCOUNTER 2019-05-14 14:29 | Inpatient (IN) | payer MEDICARE, OTHER ==
[~2019-05-14] VITALS: Ht 30.5 cm; Wt 40.8 kg
[~2019-05-14 14:29] MED LIST: DOCU100C8 PO; FAM20T PO; RIV15T PO
[2019-05-14] MEDS ORDERED: SODIUM BICARBONATE 8.4% INJ 50ML SYRINGE IV ONE (14:31)
[2019-05-14] MEDS ORDERED: EPINEPHrine HCL 1 MG/10 ML SYRG IV ONE (14:31)
[2019-05-14] MEDS ORDERED: ATROPINE SULF 1 MG/10ml SYR IV ONE (14:31)
[2019-05-14] MEDS ORDERED: CALCIUM CHLOR(10%) 100MG/ML 10ML SYRINGE IV ONE (14:31)
[2019-05-14] MEDS ORDERED: NOREPINEPHRINE 8 MG/250ML KIT 250 ML IV ONE (14:54)
[2019-05-14 15:14] LABS: Hematocrit 31.7 % (36.0-46.0); Hemoglobin 8.4 g/dL (12.2-16.2); Mean Corpuscular Hemoglobin 28.6 pg (28.0-32.0); Mean Corpuscular Hgb Conc. 26.6 g/dL (32.0-36.0); Mean Corpuscular Volume 107.4 fL (80.0-100.0); Platelet Count (auto) 93 10^3/uL (140-450); Red Blood Cells 2.95 10^6/uL (4.0-5.20); White Blood Cell 16.5 10^3/uL (4.4-10.8)
[2019-05-14 15:16] LABS: Red Cell Distribution Width 21.3 % (11.8-14.3)
[2019-05-14 15:17] LABS: Basophils % (manual) 0 (0.0-2.0); Blast Cells 0; Eosinophils % (manual) 0 (0-7); Monocytes % (manual) 0 (0-12); Promyelocytes % 0; Reactive Lymphocytes 0
[2019-05-14] MEDS ORDERED: SODIUM CHLORIDE 0.9% 1,000 ML IV ONE ×2 (15:30→16:00)
[2019-05-14] MEDS ORDERED: NOREPINEPHRINE 8 MG/250ML KIT 250 ML IV SCH (15:30)
[2019-05-14] MEDS ORDERED: PANTOPRAZOLE 40mg/50ML NS AE 50 ML IV ONE (15:30)
[2019-05-14 15:39] LABS: Band Neutrophils % (manual) 6; Lymphocytes % (manual) 12 (10.0-50.0); Metamyelocytes % 6; Myelocytes % 5
[2019-05-14 15:49] LABS: Albumin 1.2 g/dL (3.4-5.0); Calcium 10.7 mg/dL (8.5-10.1); Potassium 3.8 mmol/L (3.5-5.1)
[2019-05-14 15:52] LABS: Bilirubin, Total 0.8 mg/dL (0.2-1.0); Total Protein 4.1 g/dL (6.4-8.2)
[2019-05-14 15:55] LABS: BUN/Creatinine Ratio 26.9
[2019-05-14] MEDS ORDERED: SODIUM BICARBONATE 8.4 % INJ 50ML VIAL IV ONE ×2 (16:15→18:45)
[2019-05-14] MEDS ORDERED: cefTRIAXone 1GM/50ML D5W 50 ML IV ONE (16:45)
[2019-05-14 18:00] LABS: Lactic Acid w/Reflex 18.4 mmol/L (0.4-2.0)
[2019-05-14 18:16] VITALS: BP 95/53
[2019-05-14] MEDS ORDERED: AMIODARONE HCL 150 MG in D5W 5% 100 ML IV ONE (18:30)
[2019-05-14] MEDS ORDERED: AMIODARONE HCL 900 MG in DEXTROSE 500 ML IV SCH (18:37)
[2019-05-14] MEDS ORDERED: InsuLIN R (HUMAN) 100 UNITS in SODIUM CHL 0.9% 99 ML IV SCH (18:42)
[2019-05-14] MEDS ORDERED: SODIUM BICARBONATE 50ML VIAL 50 ML in SOD CHL 0.45% 1,000 ML IV SCH (18:45)
[2019-05-14 18:46] VITALS: BP 112/76
[2019-05-14] MEDS ORDERED: PIPERACILLIN-TAZOB 2.25GM 50 ML IV ONE (19:00)
[2019-05-14] MEDS ORDERED: AZITHROMYCIN 500MG/ 250ML 250 ML IV ONE (19:00)
[2019-05-14] MEDS ORDERED: PANTOPRAZOLE 40mg/50ML NS AE 50 ML IV SCH (19:00)
[2019-05-14] MEDS: SODIUM CHLORIDE 0.9% 1,000 ML IV SCH ×2 (19:00→21:52)
[2019-05-14] MEDS ORDERED: DEXTROSE (50%) 50ML SYRG IV PRN (19:00)
[2019-05-14 19:05] LABS: INR 1.96 (0.9-1.15)
[2019-05-14 19:08] LABS: Partial Thromboplastin Time 71.5 sec (23.64-32.05)
[2019-05-14 19:28] LABS: Anion Gap 27 (5-15); Blood Urea Nitrogen 61 mg/dL (7-18); Calcium 8.1 mg/dL (8.5-10.1); Carbon Dioxide 10 mmol/L (21-32); Chloride 122 mmol/L (98-107); GFR African American 26 mL/min; GFR Non-African American 22 mL/min; Potassium 3.8 mmol/L (3.5-5.1); Sodium 159 mmol/L (136-145)
[2019-05-14] MEDS ORDERED: PHENYLEPHRINE INJ 20 MG in SODIUM CHL 0.9% 250 ML IV SCH (19:29)
[2019-05-14] MEDS: ACCU-CHEK COMFORT CURVE STRIP VI SCH ×2 (19:30→21:02)
[2019-05-14 19:31] LABS: Glucose 443 mg/dL (74-106)
[2019-05-14] MEDS ORDERED: PHENYLEPHRINE IV 250 ML IV ONE (19:31)
[2019-05-14] MEDS ORDERED: InsuLIN REG 1unit/0.01ml Soln (100units/ml) ONE (19:52)
[2019-05-14] MEDS ORDERED: phytonadione 10 MG in SODIUM CHL 0.9% 50 ML IV ONE (20:15)
[2019-05-14 20:29] VITALS: BP 80/44
[2019-05-14] MEDS ORDERED: phytonadione 1 ML ONE (20:36)
[2019-05-14] MEDS ORDERED: THIAMINE 100mg/ml INJ (200mg/2ml VIAL) ONE (20:41)
[2019-05-14 21:00] VITALS: BP 101/49
[2019-05-14] MEDS ORDERED: MORPHINE SULFATE 10 MG/ML INJ 1ML SDV IV SCH (21:15)
[2019-05-14] MEDS ORDERED: MORPHINE SULF INJ 2 MG/ML SYRINGE 1ML IV PRN (21:45)
[2019-05-14] MEDS ORDERED: NITROGLYCERIN 0.4 MG SL TAB SL PRN (21:45)
[2019-05-14] MEDS ORDERED: LINEZOLID 600MG/300ML 300 ML IV SCH (22:00)
[2019-05-14] MEDS ORDERED: SODIUM CHLORIDE 0.9% 1,000 ML IV SCH (22:42)
[2019-05-15] MEDS ORDERED: PIPERACILLIN-TAZOB 2.25GM 50 ML IV SCH
[2019-05-15] MEDS ORDERED: AMIODARONE HCL 900 MG in DEXTROSE 500 ML IV SCH (00:37)
[2019-05-15] MEDS ORDERED: SODIUM CHLORIDE 0.9% 1,000 ML IV SCH (00:42)
[2019-05-15] MEDS ORDERED: AZITHROMYCIN 500MG/ 250ML 250 ML IV SCH (10:00)
== END 2019-05-14 22:14 | disposition expired | DRG 208 ==
LOC: EDBD 14:29 → ER 14:30 → OVERFLOW 14:31
PROVIDERS: ADMIT Internal Medicine; ATTEND Internal Medicine
PROC: 02H633Z Insertion of Infusion Device into Right Atrium, Percutaneous Approach (ICD-10-PCS; principal; 2019-05-14)
PROC: 5A1935Z Respiratory Ventilation, Less than 24 Consecutive Hours (ICD-10-PCS; 2019-05-14)
PROC: 0BH17EZ Insertion of Endotracheal Airway into Trachea, Via Natural or Artificial Opening (ICD-10-PCS; 2019-05-14)
DX: J96.00 Acute respiratory failure, unspecified whether with hypoxia or hypercapnia (principal); J69.0 Pneumonitis due to inhalation of food and vomit; E11.10 Type 2 diabetes mellitus with ketoacidosis without coma; E43 Unspecified severe protein-calorie malnutrition; K76.7 Hepatorenal syndrome; R64 Cachexia; Z68.45 Body mass index [BMI] 70 or greater, adult; I46.9 Cardiac arrest, cause unspecified; F03.90 Unspecified dementia, unspecified severity, without behavioral disturbance, psychotic disturbance, mood disturbance, and anxiety; I10 Essential (primary) hypertension; D63.8 Anemia in other chronic diseases classified elsewhere; D69.6 Thrombocytopenia, unspecified; I48.91 Unspecified atrial fibrillation; Z51.5 Encounter for palliative care; Z66 Do not resuscitate; Z96.642 Presence of left artificial hip joint; M85.80 Other specified disorders of bone density and structure, unspecified site; T17.928A Food in respiratory tract, part unspecified causing other injury, initial encounter; X58.XXXA Exposure to other specified factors, initial encounter; Y93.89 Activity, other specified; Y92.89 Other specified places as the place of occurrence of the external cause; Z86.73 Personal history of transient ischemic attack (TIA), and cerebral infarction without residual deficits; Y99.8 Other external cause status
CPT/HCPCS: 36415; 36600; 71045; 80048; 80053; 82010; 82550; 82805; 82962; 83036; 83605; 84484; 85007; 85027; 85045; 85610; 85730; 86850; 86900; 86901; 86920; 87040; 87070; 87077; 87186; 87205; 94002; G0378; J0696; J1815; J3430; J7060